=== PATIENT | male | born 1970 | race African-American/Black ===

== ENCOUNTER 2016-07-31 05:21 | Inpatient (IN) | payer OTHER ==
--- NOTE | ~2016-07-31 | CO ---
Unit #: [id number] #: [id number] Patient: MARYAM PÉREZ [id number] [address] [place], [place] [address] [id number] MR#: [id number] NAME: MARYAM PÉREZ ROOM: 338 Age: 45 Sex: M Admission Date: 07/31/2016 : 1970 Attending Physician: Pradip Ramos M.D. Primary Care Physician: Rivka Grace A.P.R.N. CONSULTATION REPORT REASON FOR CONSULTATION Hypertension. HISTORY OF PRESENT ILLNESS This is a 45-year-old male, who presented to the emergency room with complaint of shortness of breath for 2 weeks. He reports a cough that was nonproductive on Sunday. He had no fever or chills. He reported 3 pillow orthopnea, where he was unable to lay down. No leg edema. Has occasional palpitations with dizziness. Denied chest pain, syncope, or near syncope. He states he has been taking his medications as scheduled, however, yesterday it was unable to keep up down because of cough and phlegm. He drinks a lot of liquids throughout the day. He came to the emergency room for evaluation, where he was found to have chest x-ray that was consistent with pulmonary edema. His BNP was elevated at 387. Lactic acid was also elevated. He was febrile with temperature of 101. He has been started on IV antibiotics. He was hypertensive on admission, where his blood pressure was 217/117 mmHg. He was seen by our group in 2013, where he had an abnormal stress test, but his ejection fraction was 36%. He underwent cardiac catheterization, which found him to have angiographically normal coronaries. He is known to have chronic kidney disease and is followed by Dr. Yates. His creatinine was 1.6. PAST MEDICAL HISTORY 1. Cardiac catheterization after abnormal stress test with an ejection fraction of 36% on 09/05/[address] Ahmadi at [facility] that reveals angiographically normal coronaries. Ejection fraction of 45%. 2. 2D echocardiogram on 09/03/2013 showed an ejection fraction of 50% to 55%, cmyd-yi-ywrnmciu mitral regurgitation, and trace tricuspid regurgitation. 3. Hypertension. 4. COPD. 5. Obesity. 6. Chronic kidney disease. 7. Active smoker. PAST SURGICAL HISTORY Left leg surgery with fani insertion. SOCIAL HISTORY The patient is disabled. He continues to smoke a pack of cigarettes daily. He denies illicit drug or alcohol use. FAMILY HISTORY Unit #: [id number] #: [id number] Patient: MARYAM PÉREZ Positive for premature coronary artery disease in his father at age 21. Mother from DVT. No coronary artery disease in his siblings. ALLERGIES No known drug allergies. HOME MEDICATIONS Catapres 0.4 mg t.i.d., Lortab 10/500 mg q.6 hours, albuterol 2 puffs daily, carvedilol 12.5 mg b.i.d., hydralazine 100 mg t.i.d., aspirin 162 mg daily, and Prinivil 40 mg daily. REVIEW OF SYSTEMS CONSTITUTIONAL: Denies fever or chills. Has no report of weight gain or weight loss. HEENT: Positive for dizziness, but no hearing or visual changes. CARDIOVASCULAR: Has no symptoms of angina. Positive for palpitations. Reports 3 pillow orthopnea and paroxysmal nocturnal dyspnea. No syncope or near syncope. RESPIRATORY: Positive for dyspnea and nonproductive cough. No hemoptysis. GASTROINTESTINAL: No abdominal pain, nausea, or vomiting. No constipation or melena. EXTREMITIES: Negative for lower extremity edema. PHYSICAL EXAMINATION VITAL SIGNS: Blood pressure 193/105, heart rate 82, temperature 99.8. BMI 33. GENERAL: This is a 45-year-old mildly obese, male, who is in no acute distress. NEUROLOGIC: He is awake, alert, and oriented without focal weaknesses. NECK: Trachea is midline. No thyromegaly. No lymphadenopathy. With no jugular venous distention. HEART: S1 and S2. Heart sounds are normal. No murmurs. No rubs or clicks. Regular rate and rhythm. CHEST: With diminished breath sounds at both lungs. Occasional rales and rhonchi. ABDOMEN: Soft and nontender with bowel sounds are present. EXTREMITIES: Without leg edema. SKIN: Warm and dry. DIAGNOSTIC STUDIES LABORATORY RESULTS: Glucose 93, BUN 17, creatinine 1.6, sodium 136, potassium 3.3. CK total 364, MB 5.3, MB index 1.5, troponin less than 0.05 to 0.06. BNP 387. Lactic acid 2.9. White count 12.4, hemoglobin 13.7, hematocrit 41.3, and platelet count 198. IMAGING STUDIES: Chest x-ray noted for pulmonary edema. CARDIOVASCULAR STUDIES: EKG; sinus tachycardia with a rate of 108 beats per minute with left ventricular hypertrophy. There is poor R-wave progression. IMPRESSION 1. Acute on chronic systolic heart failure. 2. Uncontrolled hypertension. 3. Questionable pneumonia. 4. Chronic kidney disease, stage 3. 5. Chronic obstructive pulmonary disease. Unit #: [id number] #: [id number] Patient: MARYAM PÉREZ 6. Nonischemic cardiomyopathy with an ejection fraction of 30% per cardiac catheterization in 2013. 7. Nicotine abuse. 8. Hypokalemia. PLAN 1. Cardiology was consulted for hypertension. We will control blood pressure with beta-vanna, hydralazine, nitrates, and ELSIE inhibitor. 2. Supplement potassium. 3. Place the patient on fluid restriction. 4. Diurese with IV diuretics. 5. TSH and lipid profile will be obtained. 6. Troponin elevation is nondiagnostic. 7. We will have Dr. Hdz and to see the patient, because of chronic kidney disease. 8. We will follow the patient with you. Thank you for allowing us to assist in this patient's care. Dictated by... Rodolfo Woody A.P.R.N. for Agatha Hancock/hakeem TD: 07/31/2016 22:03 JOB #: [id number] CONSULTATION REPORT X Rodolfo Woody APRN X CONSULTATION REPORT
--- NOTE | ~2016-07-31 | DS ---
Unit #: [id number] #: [id number] Patient: MARYAM PÉREZ [id number] [address] [address] [id number] I MR#: [id number] NAME: MARYAM PÉREZ. ROOM: 338 Age: 45 Sex: M Admission Date: 07/31/2016 : 1970 Discharge Date: 08/02/2016 Attending Physician: Pradip Ramos M.D. Primary Care Physician: Robert CanalesRAce DISCHARGE SUMMARY DIAGNOSES ON ADMISSION 1. Acute respiratory failure. 2. Accelerated hypertension. DIAGNOSES ON DISCHARGE 1. Acute respiratory failure, resolved. 2. Congestive heart failure. 3. Acute asthmatic bronchitis. 4. Hypertension. 5. Chronic kidney disease stage 3. 6. Chronic systolic congestive heart failure with ejection fraction of 45%. 7. Chronic obstructive pulmonary disease. CONSULTATION 1. Dr. Dudley - Pulmonary. 2. Dr. Ahmadi - Cardiology. 3. Dr. Jason Bolanos - Renal. LABS AND PROCEDURES DONE The patient's creatinine is 2.0, sodium is 141, potassium is 4.9. WBC is 18.1, hemoglobin 12.7, platelet count is 227. Troponin is 0.06. BNP was 387. Influenzae A and B screen were negative. Chest x-ray revealed persistent cardiomegaly, improvement in pulmonary edema. No pneumothorax or other significant interval change. Bilateral renal ultrasound was normal. Blood culture did not reveal any growth. Legionella for antigen in the urine was negative. HOSPITAL COURSE 45-year-old male was admitted to [facility] with shortness of air. Details are as per admission H and P. Acute congestive heart failure: The patient's ejection fraction was 45%. Was seen by Dr. Ahmadi in consultation and responded well to diuresis and feeling much better. Unit #: [id number] #: [id number] Patient: MARYAM PÉREZ Fever: The patient had fever of [address] Dudley saw him in consultation and thought he may have asthmatic bronchitis. The patient is feeling much better, and shortness of air is improved. Acute on chronic kidney disease: Dr. Jason Bolanos saw patient in consultation. Today, patient is comfortable, is not in any acute distress. Wants to go home. On physical examination, VITAL SIGNS reveal a temperature of 97.8, pulse is 75 per minute, respiratory rate is 18 per minute, blood pressure is 118/67. HEENT examination revealed no conjunctival congestion. Sclerae is not icteric. NECK is supple. Trachea is central. RESPIRATORY examination revealed breath sounds equal bilaterally. There are no wheezes or crackles. HEART is regular rate and rhythm. S1, S2. ABDOMEN is soft, nontender. Bowel sounds are present in all four quadrants. NEUROLOGICALLY, patient is alert to person, place and time. Power is 5 out of 5 bilaterally. Sensations are grossly intact. RECOMMENDATIONS ON DISCHARGE 1. Condition is stable. 2. Activity as tolerated. MEDICATIONS 1. Albuterol/Ventolin two puffs q.2 hours p.r.n. 2. Symbicort two puffs inhalation b.i.d. 3. Prednisone 20 mg, two tablets p.o. daily for five days, one tablet p.o. daily for five days. 4. Tylenol 650 mg p.o. q.6 hours p.r.n. 5. Coreg 25 mg p.o. b.i.d. 6. Lasix 40 mg p.o. b.i.d. 7. Clonidine 0.1 mg p.o. b.i.d. 8. Hydralazine 100 mg p.o. t.i.d. 9. Lisinopril 40 mg p.o. daily. 10. Zithromax 250 mg for five days. 11. Enteric coated aspirin 162 mg p.o. daily. 12. [place] 10 mg q.6 hours p.r.n. which is patient's home dose. 13. Spironolactone 25 mg p.o. daily. 14. Imdur ER 60 mg p.o. daily. FOLLOWUP 1. Patient is advised to follow up with primary care physician in one week and have a CBC and BMP done. 2. Patient is advised to follow up with cardiology and pulmonary and renal as recommended. 3. Patient is advised to call primary care physician or go to ER if her condition changes. Dictated by... Agatha Hay TD: 08/02/2016 11:01 JOB #: [id number] Unit #: [id number] #: [id number] Patient: MARYAM PÉREZ CC: Agatha Gunderson M.D. DISCHARGE SUMMARY X Pradip Ramos MD DISCHARGE SUMMARY
--- NOTE | ~2016-07-31 | US78 ---
[facility] A Service of [facility] RADIOLOGY TEXT RESULTS PATIENT: MARYAM PÉREZ LOCATION: [facility] 338- : [birth year] UNIT #: [id number] AGE: [address]: Pradip Ramos MD SEX: M ORDER DR: [id number] [id number] [facility]. [place], [place] [address] [id number] I MR#: [id number] Acc #: [id number] NAME: MARYAM PÉREZ. : 1970 SEX: M STUDY DATE/TIME: 08/01/2016 17:36 UNIT: [address] ROOM: [facility] STUDY DESCRIPTION: US Kidney Duplex Complete Attending Physician: Pradip Ramos M.D. Ordering Physician: Jose Bolanos M.D. Primary Care Physician: Rivka Grace A.P.R.N. MEDICAL IMAGING REPORT This report is preliminary unless electronic signature is present EXAM Duplex renal ultrasound. INDICATIONS 45-year-old male with history of elevated BUN and creatinine and renal failure. TECHNIQUE Lovett-scale, color and spectral Doppler waveform imaging of the renal arteries and kidneys was performed as well as the aorta. COMPARISON Comparison with renal ultrasound from yesterday. FINDINGS The aorta velocity is 58.2 cm/sec and the waveforms are within normal limits. The right renal artery peak systolic velocities range from 69.2 cm/sec to 30.5 cm/sec. The right intrarenal artery resistive indices range from 0.57-0.68. The waveforms of the right renal artery are within normal limits. On the left, the left renal artery velocities range from 59.5 cm/sec to 28.9 cm/sec. The intrarenal resistive indices on the left range from 0.61-0.70. The waveforms on the left are within normal limits. Visualized renal parenchyma within normal limits. IMPRESSION There is no sonographic evidence of hemodynamically significant renal artery stenosis. Dictated by... [facility] A Service [facility] RADIOLOGY TEXT RESULTS PATIENT: MARYAM PÉREZ LOCATION: [facility] 338- : [birth year] UNIT #: [id number] AGE: [address]: Pradip Ramos MD SEX: M ORDER DR: Farzad Valentine M.D. THIS IS AN ELECTRONICALLY VERIFIED REPORT Farzad Valentine M.D. at 08/02/2016 3:37 PM ARS/sanam TD: 08/02/2016 08:24 JOB #: [id number] MEDICAL IMAGING REPORT COPY
--- NOTE | ~2016-07-31 | US77 ---
[facility] A Service of [facility] RADIOLOGY TEXT RESULTS PATIENT: MARYAM PÉREZ LOCATION: [facility] : [birth year] UNIT #: [id number] AGE: [address]: Pradip Ramos MD SEX: M ORDER DR: [id number] [facility] [address] [facility]. [place], [place] [address] [id number] I MR#: [id number] Acc #: [id number] NAME: MARYAM PÉREZ. : 1970 SEX: M STUDY DATE/TIME: 07/31/2016 15:44 UNIT: [address] ROOM: [facility] STUDY DESCRIPTION: US Kidney Bilateral Complete Attending Physician: Pradip Ramos M.D. Ordering Physician: Jose Bolanos M.D. Primary Care Physician: Robert CanalesRAce MEDICAL IMAGING REPORT This report is preliminary unless electronic signature is present EXAM Bilateral renal ultrasound DATE 07/31/2016 at 15:44 HISTORY Chronic kidney disease stage III. Currently with pneumonia and hypertension. COMPARISON Bilateral renal ultrasound 10/02/2014. FINDINGS Right kidney measures 12.2 x 4.7 x 5.6 cm. The left kidney measures 9.6 x 5 x 6 cm. Both kidneys maintain normal cortical thickness and cortical echotexture. No cystic or solid renal lesion or shadowing stone is seen on either side. Urinary bladder is partially distended with fluid and appears unremarkable. IMPRESSION 1. Normal bilateral renal ultrasound. No hydronephrosis. Dictated by... Katie Howard M.D. THIS IS AN ELECTRONICALLY VERIFIED REPORT Katie Howard M.D. at 08/01/2016 2:08 PM [facility] TD: 08/01/2016 05:09 JOB #: [id number] [facility] A Service of [facility] RADIOLOGY TEXT RESULTS PATIENT: MARYAM PÉREZ LOCATION: [facility] 338 : [birth year] UNIT #: [id number] AGE: [address]: Pradip Ramos MD SEX: M ORDER DR: MEDICAL IMAGING REPORT COPY
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
--- NOTE | ~2016-07-31 | CO ---
Unit #: [id number] #: [id number] Patient: MARYAM BANUELOS L [id number] [address] [place], [place] [address] [id number] MR#: [id number] NAME: MARYAM BANUELOS ROOM: 338 Age: 45 Sex: M Admission Date: 07/31/2016 : 1970 Attending Physician: Pradip Ramos M.D. Primary Care Physician: Rivka Grace A.P.R.N. Consultation Date: 07/31/2016 CONSULTATION REPORT REASON FOR CONSULTATION Renal insufficiency. Thank you very much for asking us to see this patient in consultation. HISTORY OF PRESENT ILLNESS Mr. Banuelos is a 45-year-old male with a history of chronic kidney disease stage 3, who is followed by Dr. Yates in our group. His baseline creatinine runs between 1.4 and 1.9, who presented to the hospital here with a week of shortness of breath, cough, abdominal discomfort, and nausea. No diarrhea. No urinary symptoms, who was noted to have a creatinine of 1.6. Because of this, I was asked to see the patient. He also noted to have a blood pressure greater than 200 upon presentation. He states he has been taking all of his medicines, but he vomited a month several times. In the ER, he was noted to have possible pneumonia versus congestive heart failure. He was admitted. In talking to him, he does take four 600 mg of ibuprofen a day as well as 2 aspirin a day. He again has some chest pain with cough. No sinus problems. No hemoptysis. Again, no urinary symptoms. PAST MEDICAL HISTORY History of hypertension, history of COPD, history of chronic kidney disease stage 3, history of asthma, history of obesity. ALLERGIES No known drug allergies. SOCIAL HISTORY Positive smoker. No alcohol. He is . FAMILY HISTORY Dad had heart disease. Mom had of DVT and blood clot. MEDICATIONS At home include Prinivil 40 mg a day, Catapres 0.4 mg t.i.d., Coreg 12.5 mg b.i.d., hydralazine 100 mg t.i.d., aspirin again 2 a day. Here, he was started on Zithromax, Solu-Medrol, Rocephin. He was given KCl x1. REVIEW OF SYSTEMS As mentioned in HPI, otherwise negative. PHYSICAL EXAMINATION GENERAL: He is alert and oriented. VITAL SIGNS: T-max 102.2, pulse 89 to 106, blood pressure is 162 to 217 Unit #: [id number] #: [id number] Patient: MARYAM BANUELOS over 87 to 117. HEENT: Normocephalic and atraumatic. Pupils are equal, round, and reactive to light. Extraocular muscles are intact. Hearing appears to be normal. Mouth clear. No erythema. No exudate. NECK: Supple. No JVD. No adenopathy. CARDIAC: Regular rate without a rub. No S3, S4. LUNGS: Have bilateral wheezes. ABDOMEN: Bowel sounds positive. Nontender. Soft. No masses felt. No hepato-organomegaly noted. EXTREMITIES: He has no lower extremity swelling. His pulses are intact in lower extremities. JOINTS: No joint pain or joint swelling. SKIN: No rashes. NEUROLOGIC: Appears to be intact. Motor and sensory grossly. : Deferred. DIAGNOSTIC STUDIES IMAGING STUDIES: On 09/2014, he had a renal ultrasound shows right kidney is 10.8 cm and left 10.3 cm and had a catheterization in 08/2013 that showed normal coronaries. LABORATORY RESULTS: His sodium today is 136, potassium 3.3 prior to treatment, bicarb is 25, BUN 17 creatinine 1.6, glucose 93, calcium is 8.8. BNP 367. Lactic acid 2.9. Hemoglobin 13.7, white count 12,400, platelets are 198,000. On 07/2015, creatinine was 1.9. ASSESSMENT AND PLAN 1. Chronic kidney disease stage 3. The patient's renal function overall appears to be stable. Again, his volume status unknown. His chest x-ray apparently showed a little bit of fluid versus diffuse pneumonia. He was started on some IV diuretics per Cardiology. Certainly from a renal standpoint, discussed about avoiding nonsteroidals, THOMPSON-2 inhibitors, other nephrotoxins long-term and only used Tylenol for hsks-oyt-zjxaxjo pain medicines, also would recommend long-term avoidance of PPIs and only use Pepcid if needed for reflux disease if he does get all of it phenomenon due to his hypertension and low potassium, I am going to give aldosterone and renin ratio. I also ordered a renal artery duplex scan. I am going to check UA, culture sensitivity. Check a random protein and creatinine ratio. Otherwise, we will follow with you. 2. Hypertension as mentioned above. Check renal artery duplex scan and get renin ratio. Continue home medications and will adjust as clinically indicated. 3. Probable pneumonia. 4. Possible congestive heart failure. Dictated by... Agatha Traylor/hakeem TD: 08/01/2016 04:35 JOB #: [id number] Unit #: [id number] #: [id number] Patient: MARYAM BANUELOS CONSULTATION REPORT X Erasmo Bolaons MD X CONSULTATION REPORT
--- NOTE | ~2016-07-31 | EKG ---
PATIENT: MARYAM PÉREZ UNIT #: [id number] Ventricular Rate: 108 BPM Atrial Rate: 108 BPM P-R Interval: 162 ms QRS Duration: 88 ms Q-T Interval: 344 ms QTC Calculation(Bezet): 460 ms P [place]: 64 degrees Calculated R [place]: -3 degrees Calculated T [place]: 157 degrees Diagnosis Line: Sinus tachycardia Diagnosis Line: Left ventricular hypertrophy with repolarization Diagnosis Line: abnormality Diagnosis Line: Abnormal ECG Diagnosis Line: When compared with ECG of 27-OCT-2015 05:28, Diagnosis Line: Vent. rate has increased BY 43 BPM Diagnosis Line: QT has lengthened Diagnosis Line: Confirmed by ESME GREGORY MD ([id number]) on Diagnosis Line: 08/01/2016 4:06:46 PM INTERPRETING MD: BRI LOVE
--- NOTE | ~2016-07-31 | CR63 ---
[facility] A Service of [facility] RADIOLOGY TEXT RESULTS PATIENT: MARYAM PÉREZ LOCATION: [facility] 338- : [birth year] UNIT #: [id number] AGE: [address]: Pradip Ramos MD SEX: M ORDER DR: [id number] [facility] [address] [place], [place] [address] [id number] MR#: [id number] Acc #: [id number] NAME: MARYAM PÉREZ : 1970 SEX: M STUDY DATE/TIME: 08/01/2016 9:02 UNIT: [address] ROOM: [facility] STUDY DESCRIPTION: CR Chest 2 View Attending Physician: Pradip Ramos M.D. Ordering Physician: Jet Dudley M.D. Primary Care Physician: Rivka Grace A.P.R.N. MEDICAL IMAGING REPORT This report is preliminary unless electronic signature is present EXAM Chest 2 views 08/01/2016 INDICATIONS COPD in a 45-year-old male. Congestive heart failure, shortness of air, symptoms began yesterday. TECHNIQUE Two-view chest compared with 07/31/2016 FINDING Cardiac silhouette is enlarged but stable. Interstitial opacities bilaterally have decreased in the short-term likely reflecting improvement in vascular congestion and interstitial edema. No new effusion, dense consolidation or pneumothorax. There are chronic rib fractures on the left. Lateral view degraded by exposure factors and nonstandard positioning. IMPRESSION 1. Persistent cardiomegaly. Improvement in pulmonary edema. No pneumothorax or other significant interval change. Dictated by... Tyrell Tellez M.D. THIS IS AN ELECTRONICALLY VERIFIED REPORT Tyrell Tellez M.D. at 08/01/2016 4:39 PM Verónica TD: 08/01/2016 12:43 JOB #: [id number] [facility] A Service [facility] RADIOLOGY TEXT RESULTS PATIENT: MARYAM PÉREZ LOCATION: [facility] [facility] [id number] : [birth year] UNIT #: [id number] AGE: [address]: Pradip Ramos MD SEX: M ORDER DR: MEDICAL IMAGING REPORT COPY
--- NOTE | ~2016-07-31 | CR72 ---
[facility] A Service of [facility] RADIOLOGY TEXT RESULTS PATIENT: MARYAM PÉREZ LOCATION: [facility] - : [birth year] UNIT #: [id number] AGE: [address]: Pradip Ramos MD SEX: M ORDER DR: [id number] [facility] [address] [place], [place] [address] [id number] MR#: [id number] Acc #: [id number] NAME: MARYAM PÉREZ. : 1970 SEX: M STUDY DATE/TIME: 07/31/2016 5:49 UNIT: [address] ROOM: [facility] STUDY DESCRIPTION: CR Chest Single View Portable Attending Physician: Pradip Ramos M.D. Ordering Physician: Arnav Silva M.D. Primary Care Physician: Jannie CanalesPLopezRAce MEDICAL IMAGING REPORT This report is preliminary unless electronic signature is present EXAM Single portable AP review of the chest. INDICATIONS Cough and shortness of air. Hemoptysis. 4-day duration. FINDINGS Single portable AP view of the chest compared to 10/27/2015. Heart and mediastinal contours are unchanged. There is development of diffuse perihilar interstitial and alveolar airspace opacities. No pleural effusion. IMPRESSION Development of diffuse perihilar interstitial opacities. This is most consistent with pulmonary edema, however atypical infection could also be considered. Dictated by... Vinay Burns M.D. THIS IS AN ELECTRONICALLY VERIFIED REPORT Vinay Burns M.D. at 08/01/2016 8:18 AM LEBRON/rashmi TD: 07/31/2016 13:10 JOB #: [id number] MEDICAL IMAGING REPORT COPY
[~2016-07-31 05:21] MED LIST: ALBUTEROL17 GM INH; AMLODIPINE BESYL5 MG PO; ASPIRIN81 MG PO; CARVEDILOL6.25 MG PO; CLONIDINE PO; HYDRALAZINE HC100 MG PO; ISORDIL PO; LORTAB 10-5001 EACH PO; PRINIVIL40 MG PO; XANAX1 MG PO
[2016-07-31 06:11] LABS: POC - CKMB 5.3 ng/mL (0.0-7.9); POC - TROPONIN 0.05 ng/mL (<=0.05)
[2016-07-31 06:12] LABS: BASOPHIL# 0.1 X10e3 (0-0.3); BASOPHIL% 0.6 % (0-2.5); EOSINOPHIL# 0.3 X10e3 (0-0.7); HEMATOCRIT 41.3 % (38.0-50.0); HEMOGLOBIN 13.7 gm/dL (13.0-16.0); LYMPHOCYTE# 1.6 X10e3 (1.0-3.5); LYMPHOCYTE% 12.8 % (17.0-45.0); MEAN CELL VOLUME 87.3 FL (83-96); MEAN CORPUSCULAR HGB CONC 33.2 g/dL (30-36); MEAN PLATELET VOLUME 9.8 FL (6.5-11.5); MONOCYTE# 0.8 X10e3 (0-1.0); MONOCYTE% 6.1 % (3.0-12.0); NEUTROPHIL# 9.8 X10e3 (1.5-7.1); NEUTROPHIL% 78.5 % (40-75); PLATELET COUNT 198 X10e3 (140-420); RED BLOOD COUNT 4.73 X10e (3.90-5.60); WHITE BLOOD COUNT 12.4 X10e3 (4.0-10.5)
[2016-07-31 06:16] LABS: INFLUENZA A NEG (NEG); INFLUENZA B NEG (NEG)
[2016-07-31 06:18] LABS: DIFF IND NO
[2016-07-31 06:34] LABS: PARTIAL THROMBOPLASTIN TIME 29.4 SECONDS (23.5-31.3); PROTHROMBIN TIME (PATIENT) 10.6 SECONDS (9.6-11.5)
[2016-07-31 06:49] LABS: ALKALINE PHOSPHATASE 50 U/L (32-92); ALT (SGPT) 16 U/L (10-40); AST (SGOT) 19 U/L (10-42); BILIRUBIN, DIRECT 0.2 mg/dL (0.0-0.2); BILIRUBIN,INDIRECT 1.1 mg/dL (0.0-0.9); BILIRUBIN,TOTAL 1.3 mg/dL (0.2-2.0); BLOOD UREA NITROGEN 17 mg/dL (9-23); BUN/CREATININE RATIO 10.62; CALCIUM SERUM 8.8 mg/dL (8.4-10.2); CARBON DIOXIDE 25 mmol/L (22-31); CHLORIDE 106 mmol/L (100-111); CREATININE SERUM 1.6 mg/dL (0.6-1.4); GLOM FILT RATE Estimated ABOVE60 mL/min (>60); GLUCOSE FASTING 93 mg/dL (70-110); POTASSIUM 3.3 mmol/L (3.5-5.1); PROTEIN TOTAL SERUM 7.3 g/dL (6.0-8.3); SODIUM 136 mmol/L (135-145)
[2016-07-31 07:53] LABS: POC - CKMB 2.6 ng/mL (0.0-7.9); POC - TROPONIN <0.05 ng/mL (<=0.05)
[2016-07-31 14:08] LABS: %MB 1.5 % (0.0-4.0); MB 5.3 ng/ml
[2016-07-31 14:54] LABS: URINE SOURCE CLEAN CATCH
[2016-07-31 16:12] LABS: URINE APPEARANCE CLEAR; URINE BILIRUBIN NEG (NEG); URINE BLOOD NEG (NEG); URINE COLOR YELLOW; URINE GLUCOSE NEG (NEG); URINE KETONE NEG (NEG); URINE LEUKOCYTE ESTERASE NEG (NEG); URINE NITRATE NEG (NEG); URINE PH 5.5 (5-8); URINE PROTEIN NEG (NEG); URINE SPECIFIC GRAVITY 1.009 (1.003-1.035); URINE UROBILINOGEN 0.2 MG/DL (NEG)
[2016-07-31 16:16] LABS: CULTURE INDICATED? NO
[2016-07-31 20:51] LABS: %MB 1.7 % (0.0-4.0); MB 7.3 ng/ml
[2016-08-01 06:55] LABS: THYROID STIMULATING HORMONE 0.26 uIU/ml (0.34-5.60)
[2016-08-01 07:02] LABS: FREE THYROXIN (T4) 0.87 ng/dL (0.58-1.64)
[2016-08-01 07:04] LABS: BASOPHIL% 0.2 % (0-2.5); HEMATOCRIT 37.2 % (38.0-50.0); HEMOGLOBIN 12.2 gm/dL (13.0-16.0); LYMPHOCYTE# 1.1 X10e3 (1.0-3.5); LYMPHOCYTE% 6.8 % (17.0-45.0); MEAN CORPUSCULAR HEMOGLOBIN 28.6 PG (28-34); MEAN CORPUSCULAR HGB CONC 32.9 g/dL (30-36); MEAN PLATELET VOLUME 10.3 FL (6.5-11.5); MONOCYTE# 0.4 X10e3 (0-1.0); MONOCYTE% 2.4 % (3.0-12.0); NEUTROPHIL% 90.6 % (40-75); PLATELET COUNT 213 X10e3 (140-420); RED BLOOD COUNT 4.27 X10e (3.90-5.60); RED CELL DISTRIBUTION WIDTH 13.4 % (11.0-15.5); WHITE BLOOD COUNT 15.5 X10e3 (4.0-10.5)
[2016-08-01 07:09] LABS: DIFF IND YES
[2016-08-01 07:20] LABS: BUN/CREATININE RATIO 16.31; CALCIUM SERUM 8.7 mg/dL (8.4-10.2); CREATININE SERUM 1.9 mg/dL (0.6-1.4); GLOM FILT RATE Estimated 49.3 mL/min (>60)
[2016-08-01 07:22] LABS: POTASSIUM 4.8 mmol/L (3.5-5.1)
[2016-08-01 08:17] LABS: ANISOCYTOSIS SL; PLATELET ESTIMATE NORMAL (NORMAL)
[2016-08-02 06:31] LABS: HEMOGLOBIN 12.7 gm/dL (13.0-16.0); MEAN CORPUSCULAR HEMOGLOBIN 28.6 PG (28-34); MEAN CORPUSCULAR HGB CONC 32.5 g/dL (30-36); MEAN PLATELET VOLUME 10.2 FL (6.5-11.5); RED BLOOD COUNT 4.43 X10e (3.90-5.60); RED CELL DISTRIBUTION WIDTH 13.6 % (11.0-15.5); WHITE BLOOD COUNT 18.1 X10e3 (4.0-10.5)
[2016-08-02 07:24] LABS: CALCIUM SERUM 8.9 mg/dL (8.4-10.2); GLOM FILT RATE Estimated 46.5 mL/min (>60); POTASSIUM 4.9 mmol/L (3.5-5.1)
[2016-08-02] MEDS ORDERED: HYDROCODON-ACE1 EAC5 PO (13:24)
[2016-08-02] MEDS ORDERED: SYMBICORT INH (13:25)
[2016-08-02] MEDS ORDERED: PREDNISONE10 MG PO (13:27)
[2016-08-02] MEDS ORDERED: AZITHROMYCIN250 MG PO (13:28)
[2016-08-02] MEDS ORDERED: ALDACTONE25 MG PO (13:29)
[2016-08-02] MEDS ORDERED: TYL325 PO (13:31)
[2016-08-02] MEDS ORDERED: LASIX20 MG PO (13:32)
[2016-08-02] MEDS ORDERED: IMDUR-ER60 M3 PO (13:35)
[2016-08-03 10:28] LABS: ALDOSTERONE SERUM 5 ng/dL (***)
== END 2016-08-02 14:00 | disposition home or self-care (01) | DRG 291 ==
LOC: CED 05:21 → CEDOF 07:40 → C3A PCU 17:07
PROVIDERS: Emergency Medicine; Internal Medicine; Internal Medicine Cardiovascular Disease; Internal Medicine Nephrology; Student in an Organized Health Care Education/Training Program
PROC: B246YZZ Ultrasonography of Right and Left Heart using Other Contrast (ICD-10-PCS; principal; 2016-07-31)
DX: I13.0 Hypertensive heart and chronic kidney disease with heart failure and stage 1 through stage 4 chronic kidney disease, or unspecified chronic kidney disease (principal); I50.23 Acute on chronic systolic (congestive) heart failure; J96.00 Acute respiratory failure, unspecified whether with hypoxia or hypercapnia; I16.1 Hypertensive emergency; N18.3 Chronic kidney disease, stage 3 (moderate); Z00.6 Encounter for examination for normal comparison and control in clinical research program; F17.210 Nicotine dependence, cigarettes, uncomplicated; Z82.49 Family history of ischemic heart disease and other diseases of the circulatory system; Z79.82 Long term (current) use of aspirin; I42.8 Other cardiomyopathies; J44.9 Chronic obstructive pulmonary disease, unspecified; E87.6 Hypokalemia; E66.9 Obesity, unspecified
CPT/HCPCS: 36415; 71010; 71020; 76770; 80048; 80061; 80076; 81003; 82088; 82308; 82550; 82553; 82570; 83605; 83735; 83880; 84156; 84244; 84439; 84443; 84484; 85025; 85027; 85610; 85730; 87040; 87449; 87633; 87804; 93005; 93306; 93975; 94640; 94760; 96361; 96365; 96375; 99285; J0360; J0456; J0696; J1650; J1940; J2920; J2930

== ENCOUNTER → 2016-11-15 | Outpatient (CLI) | payer OTHER ==
[~2016-11-15] MED LIST changes: +ALDACTONE25 MG PO; +AZITHROMYCIN250 MG PO; +HYDROCODON-ACE1 EAC5 PO; +IMDUR-ER60 M3 PO; +LASIX20 MG PO; +PREDNISONE10 MG PO; +SYMBICORT INH; +TYL325 PO
== END | disposition home or self-care (01) ==
LOC: CRC 09:41
DX: J44.9 Chronic obstructive pulmonary disease, unspecified (principal); I12.9 Hypertensive chronic kidney disease with stage 1 through stage 4 chronic kidney disease, or unspecified chronic kidney disease; N18.3 Chronic kidney disease, stage 3 (moderate)
CPT/HCPCS: 94060; 94726; 94729